=== PATIENT | female | born 1945 | race Caucasian/White ===

== ENCOUNTER → 2018-04-25 | Outpatient (CLI) | payer MEDICARE, BC | LOC: MAMMO 13:41 | DX: Z12.31 Encounter for screening mammogram for malignant neoplasm of breast (principal); Z85.3 Personal history of malignant neoplasm of breast; Z90.12 Acquired absence of left breast and nipple; Z92.3 Personal history of irradiation ==

== ENCOUNTER 2018-09-23 10:56 | Emergency (ER) | payer MEDICARE, BC ==
[~2018-09-23] VITALS: Ht 172.7 cm; Wt 110.0 kg
[2018-09-23] MEDS ORDERED: RELION NOVOL100 U/M1 SQ (11:22)
[2018-09-23] MEDS ORDERED: NOVOLOG 100U100 U/ML SQ (11:22)
[2018-09-23] MEDS ORDERED: FOLIC ACID1 MG PO (11:23)
[2018-09-23] MEDS ORDERED: FIBER GUMMIES1 EACH PO (11:23)
[2018-09-23] MEDS ORDERED: ATORVASTATIN CA80 MG PO (11:23)
[2018-09-23] MEDS ORDERED: METOPROLOL SUCC50 M1 PO (11:23)
[2018-09-23] MEDS ORDERED: LOSARTAN POTASS50 M1 PO (11:23)
[2018-09-23] MEDS ORDERED: VITAMIN B122500 MC2 PO (11:24)
[2018-09-23] MEDS ORDERED: NATURAL IRON65 MG PO (11:24)
[2018-09-23] MEDS ORDERED: ASPIR LOW81 MG PO (11:24)
[2018-09-23] MEDS ORDERED: STOOL SOFTENER250 M2 PO (11:24)
[2018-09-23] MEDS ORDERED: PEPCID 20MG TAB20 MG PO (11:25)
[2018-09-23] MEDS ORDERED: VITAMIN C500 M6 PO (11:25)
[2018-09-23] MEDS ORDERED: VITAMIN D350000 UNIT PO (11:25)
[2018-09-23] MEDS ORDERED: MASON NATURAL500 MG PO (11:25)
[2018-09-23 11:45] LABS: HEMATOCRIT 42.9 % (37.0-47.0); HEMOGLOBIN 14.4 g/dL (12.5-16.0); MEAN CELL VOLUME 94 fl (78-100); MEAN CORPUSCULAR HEMOGLOBIN 31 pg (27-31); MEAN CORPUSCULAR HGB CONC 34 g/dL (33-37); MEAN PLATELET VOLUME 9.1 fl (7.4-10.4); PLATELET COUNT 204 K/mm3 (130-400); RED BLOOD COUNT 4.59 M/mm3 (4.10-5.30); RED CELL DISTRIBUTION WIDTH 12.8 % (11.5-14.5); WHITE BLOOD COUNT 7.4 K/mm3 (4.8-10.8)
[2018-09-23 12:05] LABS: BAND 1 % (0-10); LYMPHOCYTE 7 % (20-51); MONOCYTE 7 % (3-10); NEUTROPHILS 85 % (42-75)
[2018-09-23 12:13] LABS: POTASSIUM 4.5 mmol/L (3.6-5.0); TOTAL PROTEIN 7.2 g/dL (6.3-8.2)
[2018-09-23 13:20] LABS: URINE APPEARANCE CLEAR; URINE BILIRUBIN NEGATIVE (NEGATIVE); URINE BLOOD NEGATIVE (NEGATIVE); URINE COLOR YELLOW; URINE GLUCOSE NEGATIVE (NEGATIVE); URINE KETONE NEGATIVE (NEGATIVE); URINE LEUKOCYTE ESTERASE NEGATIVE (NEGATIVE); URINE NITRATE NEGATIVE (NEGATIVE); URINE PROTEIN(semi-quant) NEGATIVE (NEGATIVE); URINE UROBILINOGEN NORMAL (NORMAL); URINE WBC 0-1 /hpf (0-3)
[2018-09-23 13:38] LABS: ALBUMIN 4.4 g/dL (3.5-5.0); CALCIUM 10.6 mg/dL (8.4-10.2); TOTAL BILIRUBIN 0.9 mg/dL (0.2-1.3)
[2018-09-23] MEDS ORDERED: OMEPRAZOLE20 MG PO (16:31)
[2018-09-23 17:40] VITALS: BP 154/78
== END 2018-09-23 16:52 | disposition home or self-care (01) ==
LOC: ED 10:56
PROVIDERS: Family Medicine
DX: I12.9 Hypertensive chronic kidney disease with stage 1 through stage 4 chronic kidney disease, or unspecified chronic kidney disease (principal); E11.22 Type 2 diabetes mellitus with diabetic chronic kidney disease; N18.9 Chronic kidney disease, unspecified; K21.9 Gastro-esophageal reflux disease without esophagitis; I25.10 Atherosclerotic heart disease of native coronary artery without angina pectoris; I25.2 Old myocardial infarction; Z79.4 Long term (current) use of insulin; Z85.3 Personal history of malignant neoplasm of breast; Z85.038 Personal history of other malignant neoplasm of large intestine; Z95.5 Presence of coronary angioplasty implant and graft
CPT/HCPCS: C9113; J0360; J3490; J7030